=== PATIENT | male | born 1960 | race Caucasian/White ===

== ENCOUNTER → 2025-03-31 10:57 | Outpatient (CLI) | payer MEDICARE, OTHER, SELFPAY ==
--- NOTE | 2025-03-31 16:20 | ST.SWALLOW ---
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 Modified Barium Swallow Study Start: 03/31/25 14:21 Freq: Status: Active Protocol: Document 03/31/25 14:22 LNK (Rec: 03/31/25 16:19 LNK Desktop) Modified Barium Swallow Study Total Time Visit Start Time 11:00 Visit Stop Time 11:45 Total Visit Minutes 45 Referral Referring Physician No Hitchcock MD, Neurology, [place], [place] Setting Setting Outpatient Care Patient Information Identification Type Name,Date of Patient History Pt was seen for a Modified Barium Swallow study to observe and assess the functioning of the oral, pharyngeal and esophageal phases of swallowing, as well as determine aspiration risk. Pt reported difficulty with swallowing solids. He noted medications and liquids do not present a swallowing difficulty. He describes his swallowing as feeling as though food gets stuck in his pharynx and feels like he is being choked. Pt was seen in the Ed and had a CT scan of soft tissue of the neck re: globus sensation/dysphagia. The results indicated no soft tissue mass, normal appearing epiglottis and no enlarged lymph nodes. pt was discharged from the ED to home with instructions to f/u with PCP. Pt was diagnosed with Parkinson's Disease in 2018. He described his PD symptoms as worsening over the past 2 years with an acceleration of decline occurring within the past 6 months. He noted that around 6 months ago, he moved from [place] to [place]. He described that period of time as very stressful. He reported a progressive weakness over the past six months. Pt also noted he has a history of long COVID which causes him shortness of breath. Pt described what he terms PPK attacks (e.g., Parkinson's Disease attacks) that have been occurring more frequently; lately on a daily basis, especially at night. These PPK attacks were described as including left side facial numbness, left hand freezes up with pain and enhanced tremor, and, greater difficulty swallowing. He added that his stomach shakes during these attacks. His speech pattern is very disfluent with many sound repetitions, also new since PD diagnosis. Pt has a neurologist in [facility], No Hitchcock MD, that he consults with while he gets established with a neurologist in [place], [place]. He stated that his PD medication makes his mouth and throat very dry; therefore he is always drinking water. Subjective Pt was seated in the flouroscopy chair with directions Observations and procedures explained for him. He indicated he understood and agreed to proceed. Patient Positioning Position View Lat-A/P Imaging Lateral View Textures Administered Trials Presented Thin Liquid via Spoon (IDDSI 0),Thin Liquid via Cup ( IDDSI 0),Extremely Thick Liquid via Spoon (IDDSI 4), Regular (IDDSI 7) Barium Tablet Yes The IDDSI Framework Protocol: IDDSI.1 Oral Impairment Source: The Modified Barium Swallow Impairment Profile (MBSImP??) Lip Closure No labial escape Tongue Control Cohesive bolus between tongue to palatal seal During Bolus Hold Bolus Preparation/ Timely & efficient chewing & mashing Mastication Bolus Transport/ Brisk tongue motion Lingual Motion Oral Residue Residue collection on oral structures Location Tongue Initiation of Bolus head in valleculae Pharyngeal Swallow Additional Oral *OME observed to be FL. Lingual coordination for Impairment rapidly alternating movement was mildy reduced Observations *DKS were observed to be WFL *Dentition natural and in good hygiene *Mastication observed with rotary chew pattern. *Good bolus formation, control and AP transition. *Velopharyngeal closure was WNL. Pharyngeal Impairment Source: The Modified Barium Swallow Impairment Profile (MBSImP??) Soft Palate No bolus between soft palate & pharyngeal wall Elevation Laryngeal Elevation Comp.sup.move.thyroid cart.w/comp.approx.arytenoids to epiglot petiole Anterior Hyoid Complete anterior movement Excursion Epiglottic Movement Complete inversion Laryngeal Vestibular Complete; no air/contrast in laryngeal vestibule Closure Pharyngeal Stripping Present - diminished Wave Pharyngoesophageal Partial distention/partial duration; partial Segment Opening obstruction of flow Tongue Base Trace column of contrast/air betwn tongue base & post. Retraction pharyngeal wall Pharyngeal Residue Collection of residue within/on pharyngeal structures Additional *Hyoid/laryngeal elevation and epiglottic inversion Pharyngeal were judged to be adequate. Impairment *Tongue base retraction and pharyngeal stripping wave Observations were mildly reduced resulting in pharyngeal residue. *Reduced extension and duration of the cricopharyngeal opening, especially noted for posterior aspect during swallows across all trials; most notable the semi-solid and solid trials. This resulted in residual contrast pooling on top of UES as well along the lower third of the posterior pharyngeal wall. Subsequent swallows of the semi-solid and solid trials were minimally effective in clearing pooled UES residue. The pt pointed to the middle of his throat (near UES opening/ cricothyroid cartilage) describing the bolus as caught in that area. At one point,, the pt coughed and more. residue was observed to enter the pharynx from UES area Following the cookie /solid trial, pieces of cookie were observed in the valeculla, the UES and along the posterior pharyngeal wall. *No laryngeal penetration or aspiration was observed. A/P View Textures Administered Trials Presented Thin Liquid via Cup (IDDSI 0),Regular (IDDSI 7) The IDDSI Framework Protocol: IDDSI.1 A/P View Observations Pharyngeal Complete Contraction Esophageal Clearance Esophageal retention Upright Position Vocal Fold Function Good Esophageal Function Slowed Clearing,Stasis Additional A-P Thin barium, a barium coated cookie and calibrated Observations barium tablet provided for AP trials Upon changing positions from lateral to AP, esophageal retention of previous trials were noted in the lower third of the esophagus with the pt endorsing a globus sensation. This is a typically a referred sensation from the esophagus to the lower pharynx/suprasternal area. A swallow of water partially cleared the residue to the stomach with the addition of residual retro-flow upward of the lower esophageal contents. With multiple swallows of water, pt's esophagus was observed to clear contents to the stomach slower than expected. Clinical Impressions Dysphagia Type Pharyngeal,Esophageal Findings Neurological referral and assessment strongly recommended. Rehabilitation Excellent Potential Patient Appropriate Yes for Therapy Recommendations Diet Comments no diet change at this time Treatment Plan Therapy Outpatient Speech Therapy Recommendations Recommended Primary Care Physician,Neurology Referrals
== END ==
LOC: RAD 10:58
PROVIDERS: Family Provider Family Medicine; PCP Family Medicine; Referring Provider Family Medicine; Visit Provider Family Medicine
DX: R13.13 Dysphagia, pharyngeal phase (principal); G20.A1 Parkinson's disease without dyskinesia, without mention of fluctuations; Z87.898 Personal history of other specified conditions
CPT/HCPCS: 74230; 92611

== ENCOUNTER 2025-06-02 07:56 | Day surgery (SDC) | payer MEDICARE, OTHER, SELFPAY ==
--- NOTE | 2025-06-02 | PATH_ITS ---
[facility] Accession Number: [id number] No. of containers..03 Tissue . 01 Material submitted: . PART A: gastrointestinal site - ANTRAL BIOPSY PART B: body - STOMACH, POLYPOID MASS, BIOPSY PART C: colon - COLON, 90 CM POLYP . 01 Diagnosis: Part A: ANTRAL BIOPSY: Gastric mucosa with minimal chronic inflammation. No Helicobacter organisms identified. No intestinal metaplasia, dysplasia, or malignancy identified. . Part B: STOMACH, POLYPOID MASS, BIOPSY: Gastric mucosa with mild chronic inflammation and minimal reactive foveolar changes. No Helicobacter organisms identified. No intestinal metaplasia, dysplasia, or malignancy identified. See comment. . Specimen Comments: Multiple levels are examined. The histologic changes do not clearly correlate with the endoscopic appearance of a polypoid mass. Clinical correlation is recommended to rule out any possibility of an unsampled lesion. . Part C: COLON, 90 CM POLYP: Tubular adenoma. [facility] 06/14/2025 1547 Local . 01 Electronically signed: . Danilo Hall MD, Pathologist NPI- [id number] . 01 Gross description: . . . . Received are three formalin-filled containers each labeled with the patient's name. . A. In a container labeled antral bx. The specimen consists of one fragment of carson, soft tissue which measures 0.3 x 0.3 x 0.2 cm. The specimen is totally submitted in cassette A1. . B. In a container labeled polypoid mass. The specimen consists of one fragment of carson, soft tissue which measures 0.2 x 0.2 x 0.2 cm. The specimen is totally submitted in cassette B1. . C. In a container labeled 90 cm colon polyp. The specimen consists of one fragment of carson, soft tissue which measures 0.4 x 0.4 x 0.2 cm. Totally submitted in cassette C1. ([id number]) /[place] 06/14/2025 1547 Local . 01 Microscopic: . Part A: ANTRAL BIOPSY: An immunohistochemical stain was performed to evaluate for Helicobacter organisms and is negative. The control stains appropriately. * This test was developed and the performance characteristics were validated by [facility]. It has not been cleared or approved by the Food and Drug Administration. . 01 Pathologist provided ICD-10: D12.6, K29.30, K29.50 . 01 CPT . 210874, 034385, 847638, [id number] Specimen Comment: A courtesy copy of this report has been sent to [facility] Pathology Performed at: [address] [address], [place], [place] [id number] MD Danilo Hall MD Phone: [phone]
--- NOTE | 2025-06-02 06:51 | PM.HP.IH.1 ---
History of Present Illness History of Present Illness Date Patient Seen: 06/02/25 Chief complaint: SDC Narrative: 65yo M presents for EGD/Colonoscopy today for dysphagia, screening colonoscopy, h/o polyps. [facility] Medical History (Updated 06/02/25 @ 06:52 by Sonu Aquino MD) Dysphagia Meds Home Medications and Allergies Home Medications ?Medication ?Instructions ?Recorded ?Confirmed ?Type albuterol sulfate 90 mcg/actuation inhalation 04/20/25 04/20/25 History aerosol inhaler bupropion HCl 75 mg tablet mg PO 04/20/25 04/20/25 History carbidopa 25 mg-levodopa 100 mg tab PO 04/20/25 04/20/25 History tablet carbidopa ER 25 mg-levodopa 100 mg 1 tab PO BID 04/20/25 04/20/25 History tablet,extended release clonazepam 1 mg tablet 1 mg PO 04/20/25 04/20/25 History trazodone 50 mg tablet 100 mg PO ONCE PM PRN 04/20/25 04/20/25 History sodium,potassium,mag sulfates 17.5 See Rx Instructions PO .COMPLEX 04/22/25 Rx gram-3.13 gram-1.6 gram oral soln #354 mL (Suprep Bowel Prep Kit) sodium,potassium,mag sulfates 17.5 See Rx Instructions PO .COMPLEX 05/27/25 Rx gram-3.13 gram-1.6 gram oral soln #354 mL (Suprep Bowel Prep Kit) Allergies Allergy/AdvReac Type Severity Reaction Status Date / Time No Known Drug Allergies Allergy Verified 04/20/25 11:08 Exam Narrative Exam Narrative: Const General: healthy appearing, comfortable and no acute distress Orientation: alert and oriented x3 HENMT Ears: hearing grossly normal bilaterally Eyes Visual Payton: normal visual payton by confrontation Conjunctivae: conjunctivae normal Sclera: sclerae normal EOM: EOM intact bilaterally Resp Effort & Inspection: normal respiratory effort and able to speak in complete sentences Cardio Rate: regular rate GI Palpation: soft (NT) Extrem General: no pedal edema and no calf tenderness Assessment & Plan Assessment and plan (1) Dysphagia: Qualifiers: Dysphagia type: unspecified Qualified Code(s): R13.10 - Dysphagia, unspecified Status: Acute (2) FH: colon cancer: Status: Acute (3) Colon polyps: Qualifiers: Colon polyp type: unspecified Colon location: unspecified part of colon Qualified Code(s): K63.5 - Polyp of colon Status: Acute Plan Plan EGD/colonoscopy, possible biopsy. The risks, benefits and options regarding the procedure were explained to the patient in detail. Risk discussion included but not limited to: bleeding, perforation, unable to reach cecum, missed lesion. The patient was encouraged to ask questions and they were answered to their satisfaction. The patient understands and is agreeable to proceed. Time-Based Coding :: [TOTAL MINUTES] spent with patient and on the chart (including review of chart, obtaining history, exam, reviewing outside data, placing orders, documenting exam and treatment plan, and counseling patient) on [DATE]. PROFEE Field Support Engineer Document charge(s): Yes Charge Codes Inpatient/observation care including admit and discharge same day: [id number]
[2025-06-02 08:19] VITALS: BP 148/80; PULSE 98; RESP 15; TEMP 36.8; O2SAT 98
[2025-06-02] MEDS: LACTATED RINGERS 1,000 ML 42 ML IV (08:37)
--- NOTE | 2025-06-02 09:15 | PM.OP.EC ---
Operative Date/Time/Diagnoses Date of procedure: 06/02/25 Time of procedure: 09:57 Pre-op diagnosis: Dysphagia, colon screening Post-op diagnosis: other (moderate antral gastritis, colon polyp, internal hemorrhoids) Procedure & Clinicians Study performed: EGD/Colonoscopy with biopsy Same procedure(s) as scheduled: Yes Indications: 65yo M, dysphagia, Parkinsons, +FH colon cancer, h/o colon polyps Surgeon: Sonu Aquino Anesthesia Type: MAC +/- Procedure Notes SCOAP/Timeout: Performed Procedure in detail: EGD Informed consent was obtained. The procedure, its risks, benefits, and alternatives were discussed. Patient understood and agreed to proceed. The patient was placed in the left lateral decubitus position with head elevated. Sedation given per anesthesia. The video endoscope was inserted into the oropharynx and guided under direct vision into the esophagus, stomach, and duodenum which were carefully examined. The scope was retroflexed to examine the hiatus and gastroesophageal junction. Antral biopsies were obtained for Helicobacter pylori. The patient tolerated the procedure very well. There were no apparent complications. Significant EGD findings: Z-line noted at: 45cm Esophagus normal, no stricture or mass No endoscopic explanation for dysphagia No hiatal hernia Moderate gastritis in distal antrum, biopsied, possible H pylori Polypoid mass/gastritis in distal antrum biopsied Duodenum normal No ulcer in esophagus, stomach or duodenum Colonoscopy Patient placed in left lateral recumbent position. Time out was performed. Procedural sedation was administered by anesthesia. Examination began with a thorough inspection of the perianal area. There was no evidence of fissures, fistulae, external hemorrhoids or cutaneous malignancy. The colonoscope was then placed into the rectum and the lumen was insufflated with carbon dioxide. The scope was carefully advanced forward. Ultimately the cecum was intubated and confirmed by identification of the ileocecal valve, the appendiceal orifice and the confluence of the taenia. The scope was then slowly withdrawn examining the colon thoroughly in all directions. In the rectum, retroflexion of the scope was performed for inspection of the distal rectum and anal canal. ?Significant colonoscopy findings: ?1. Quality of the preparation-good, Frederick 2-3, improved with irrigation/suction ?2. Single polyp at 90cm, 3mm, sessile, removed with cold snare and retrieved for pathology 3. Small internal hemorrhoids Scope withdrawal time: 16 Findings: gastritis, internal hemorrhoids and polyp Specimen(s): other (biopsies) Estimated Blood Loss: 5 Complications: none Impression: Moderate antral gastritis - Pepcid (adverse reaction to omeprazole) Single colon polyp Small internal hemorrhoids Post-procedure Recommendations: Colonscopy in 5 years and Will call with biopsy results Plan for aftercare: PACU then home Pepcid for gastritis, H pylori testing pending Follow up: as needed Disposition: PACU
[2025-06-02 09:52] VITALS: BP 105/57; PULSE 74; RESP 16; TEMP 36.2; O2SAT 98
[2025-06-02 09:56] VITALS: BP 115/59; PULSE 74; RESP 16; O2SAT 97
[2025-06-02 09:59] VITALS: BP 109/59; PULSE 76; RESP 16; O2SAT 95
[2025-06-02 10:01] VITALS: BP 97/53; PULSE 75; RESP 16; O2SAT 97
[2025-06-02 10:09] VITALS: BP 124/60; PULSE 73; RESP 16; O2SAT 98
== END 2025-06-02 10:33 | disposition home or self-care (01) ==
PROVIDERS: Family Provider Family Medicine; PCP Family Medicine; Referring Provider Family Medicine; Visit Provider Surgery
PROC: 0DJ08ZZ Inspection of Upper Intestinal Tract, Via Natural or Artificial Opening Endoscopic (ICD-10-PCS; CPT 45385; principal; 2025-06-02 09:00)
PROC: 0DJD8ZZ Inspection of Lower Intestinal Tract, Via Natural or Artificial Opening Endoscopic (ICD-10-PCS; CPT 45378; 2025-06-02 09:00)
DX: Z12.11 Encounter for screening for malignant neoplasm of colon (principal); R13.10 Dysphagia, unspecified; Z80.0 Family history of malignant neoplasm of digestive organs; Z86.0100 Personal history of colon polyps, unspecified; G20.A1 Parkinson's disease without dyskinesia, without mention of fluctuations; K29.50 Unspecified chronic gastritis without bleeding; K64.8 Other hemorrhoids
CPT/HCPCS: 45385; 43239; J2704; J7120